=== PATIENT | female | born 1995 | race Caucasian/White ===

== ENCOUNTER 2024-11-04 05:37 | Day surgery (SDC) | payer BC, OTHER ==
[2024-11-01 09:41] VITALS: BMI 31.1
[2024-11-04] MEDS ORDERED: ACETAMINOPHEN INJECTION 100 ML ONE (11:21)
[2024-11-04] MEDS ORDERED: PROPOFOL 20 ML ONE ×2 (11:31→12:25)
[2024-11-04] MEDS ORDERED: MIDAZOLAM HCL 2 MG/2 ML SINGLE DOSE VIAL ONE ×2 (11:32→12:21)
[2024-11-04] MEDS: ceFAZolin SODIUM 1 GM VIAL IVPB ONE ×2 (12:25)
[2024-11-04] MEDS ORDERED: ceFAZolin SODIUM 1 GM VIAL ONE (12:28)
[2024-11-04] MEDS ORDERED: DEXAMETHASONE SOD PHOSPHATE 4 MG/1 ML VIAL ONE (12:30)
[2024-11-04] MEDS ORDERED: KETOROLAC TROMETHAMINE 30 MG/1 ML VIAL ONE (12:30)
[2024-11-04] MEDS ORDERED: ONDANSETRON 4 MG/2 ML VIAL ONE (12:30)
[2024-11-04] MEDS ORDERED: SEVOFLURANE 250 ML BTL ONE (12:34)
[2024-11-04] MEDS ORDERED: TRANEXAMIC ACID 1000 MG/10 ML VIAL ONE (12:37)
[2024-11-04] MEDS ORDERED: ONDANSETRON 4 MG/2 ML VIAL IVPUSH PRN (12:55)
[2024-11-04] MEDS: LACTATED RINGERS SOLUTION 1,000 ML IV SCH (13:08)
[2024-11-04 14:34] VITALS: RESP 16; TEMP 97.8
[2024-11-04 15:52] VITALS: BP 100/74; PULSE 73
== END 2024-11-04 16:14 | disposition home or self-care (01) ==
LOC: JASU-SURG 05:37
PROVIDERS: ATTEND Obstetrics & Gynecology
PROC: 10D17ZZ Extraction of Products of Conception, Retained, Via Natural or Artificial Opening (ICD-10-PCS; principal; 2024-11-04 11:00)
DX: O02.1 Missed abortion (principal); Z3A.08 8 weeks gestation of pregnancy
CPT/HCPCS: 88305-TC; 94760; J0131